=== PATIENT | female | born 2000 | race Caucasian/White ===

== ENCOUNTER 2021-01-22 20:07 | Emergency (ER) | payer BC, SELFPAY ==
[2021-01-22 20:12] VITALS: BP 128/79; PULSE 86; RESP 18; TEMP 37.1; O2SAT 98; BMI 21.9
[2021-01-22 20:47] LABS: UPreg QC Valid YES; Urine Pregnancy NEGATIVE (NEGATIVE)
[2021-01-22 22:59] LABS: Appearance Urine CLOUDY; Color Urine ORANGE
[2021-01-22 23:05] LABS: Amorphous Sediment Urine 2+ /LPF; Bacteria Urine 1+ /LPF; Squamous Epithelial Cell Urine 1+ /LPF
--- NOTE | 2021-01-23 00:04 | ED_ITS ---
HPI - General Adult General Chief complaint: General Medical Stated complaint: ?kidney stones Time Seen by Provider: 01/22/21 22:20 Source: patient Mode of arrival: ambulatory History of Present Illness HPI narrative: This is a 20-year-old female presents with 2-3 weeks of intermittent lower back discomfort that is not been associated with fever, chills, nausea, vomiting but patient is noted that she intermittently has some burning on urination. Patient has been evaluated at urgent care and at that time was treated for a UTI with an unknown antibiotic that she took for 5 days. Patient states that at that time urgent care was concerned regarding the blood that they noted in her urine although she endorses that she was menstruating at that time. She states that she has continued to have some spotting as she was recently started on Nexplanon. She states that she is currently pain-free. She denies any trauma. Related Data Previous Rx's Medication Instructions Recorded ciprofloxacin HCl 500 mg tablet 500 mg PO Q12H 5 Days #10 tab 01/23/21 Allergies Allergy/AdvReac Type Severity Reaction Status Date / Time No Known Allergies Allergy Verified 01/22/21 20:24 Review of Systems Review of Systems: Pertinent positives and negatives as stated in HPI 10 point review of systems is otherwise negative. PMFSH Past Medical History Source: nursing notes reviewed Medical History Anxiety Depression Social History Social History Advance Directives: No Patient : No Physical Exam Vital Signs: Vital Signs: Last Vital Signs Temp 98.8 F 01/22/21 20:12 Pulse 86 01/22/21 20:12 Resp 18 01/22/21 20:12 BP 128/79 01/22/21 20:12 Pulse Ox 98 01/22/21 20:12 Body Mass Index 21.9 VITAL SIGNS: Reviewed. GENERAL: Well developed, well nourished, in no acute distress. HEAD: Normocephalic/atraumatic EYES: PERRLA, EOMI EARS: Ext canals without abnormality LUNGS: Normal breath sounds. No adventitious sounds or accessory muscle use. SpO2<98> CARDIOVASCULAR: Regular rate and rhythm without noted murmurs ABDOMEN: Soft, non-tender, non-distended with bowel sounds, no CVA tenderness SKIN: Inspection of the skin reveals no rashes NEUROLOGIC: Alert and oriented x 4. PSYCH: Flat affect Course Course Course Narrative: This is a 20-year-old female with history and clinical presentation most consistent with urine sample is contaminated with menstrual blood and patient is currently completely asymptomatic with no constitutional symptoms. Urine is negative and patient is otherwise hemodynamically stable. At this time I will not expose this young individual to radiation as I have no clinical suspicion that this is renal colic. In addition, I do not suspect infectious or traumatic etiologies. On review of all investigations as there remains presence of bacteria in the urine there is possibility that patient is struggling with mild pyelonephritis and will receive initial antibiotics here and and be discharged with remaining course. She was strongly recommended follow-up with a primary care provider. Medical Decision Making Lab Data Labs: Lab Results 01/22/21 01/22/21 01/23/21 Range/Units 20:37 20:37 00:07 Urine Color ORANGE ORANGE Urine Appearance CLOUDY CLEAR Urine pH TNP TNP Ur Specific [place] TNP TNP Urine Protein TNP TNP Urine Glucose (UA) TNP TNP Urine Ketones TNP TNP Urine Blood TNP TNP Urine Nitrite TNP TNP Ur Leukocyte Esterase TNP TNP Urine RBC 1-4 1-4 (0) /HPF Urine WBC 1-4 1-4 (0-4) /HPF Ur Squamous Epith Cells 1+ 1+ /LPF Calcium Oxalate Crystal TRACE /LPF Amorphous Sediment 2+ /LPF Urine Bacteria 1+ 2+ /LPF Urine Mucus 1+ /LPF Urine Test NEGATIVE (NEGATIVE) Discharge Plan Discharge Clinical Impression: Pyelonephritis Patient Disposition: Home, Self-Care Instructions: Kidney Infection (ED) Additional Instructions: Complete entire course of antibiotics an increase water intake while avoiding caffeinated/carbonated beverages. Follow-up with primary care provider in the next 2-3 days for re-evaluation further outpatient management. Use [id number] Tylenol and ibuprofen for any pain control as well as a heating pad for additional symptom relief. Return to the ER for acute worsening of symptoms. Prescriptions: New ciprofloxacin HCl 500 mg tablet 500 mg PO Q12H 5 Days Qty: 10 RF: 0
[2021-01-23 00:13] LABS: Appearance Urine CLEAR; Color Urine ORANGE
[2021-01-23 00:23] LABS: Bacteria Urine 2+ /LPF; Calcium Oxalate Crystals Urine TRACE /LPF; Mucus Urine 1+ /LPF; Squamous Epithelial Cell Urine 1+ /LPF
[2021-01-23] MEDS: levoFLOXacin 500 MG TABLET PO (01:27)
== END 2021-01-23 01:33 | disposition home or self-care (01) ==
PROVIDERS: Emergency Provider Student in an Organized Health Care Education/Training Program
DX: N11.1 Chronic obstructive pyelonephritis (principal); M54.50 Low back pain, unspecified; Z79.899 Other long term (current) drug therapy
CPT/HCPCS: 36415; 81003; 81025; 87086; 99283